=== PATIENT | male | born 1950 | race Caucasian/White ===

== ENCOUNTER 2016-06-12 09:44 | Outpatient (CLI) | payer OTHER | END 2016-06-12 09:54 | LOC: LAB 09:44 | PROVIDERS: ATTEND Family Medicine | DX: Z51.81 Encounter for therapeutic drug level monitoring (principal); Z79.01 Long term (current) use of anticoagulants | CPT/HCPCS: 36415; 85610 ==

== ENCOUNTER 2016-07-17 08:27 | Outpatient (CLI) | payer OTHER | END 2016-07-17 08:33 | disposition home or self-care (01) | LOC: LAB 08:27 | PROVIDERS: ATTEND Family Medicine | DX: Z51.81 Encounter for therapeutic drug level monitoring (principal) | CPT/HCPCS: 36415; 85610 ==

== ENCOUNTER 2016-09-04 07:15 | Outpatient (CLI) | payer OTHER | END 2016-09-04 07:16 | LOC: LAB 07:15 | PROVIDERS: ATTEND Family Medicine | DX: Z51.81 Encounter for therapeutic drug level monitoring (principal); Z79.01 Long term (current) use of anticoagulants | CPT/HCPCS: 36415; 85610 ==

== ENCOUNTER 2016-09-09 06:58 | Outpatient (CLI) | payer OTHER | END 2016-09-09 07:00 | LOC: LAB 06:58 | PROVIDERS: ATTEND Family Medicine | DX: Z51.81 Encounter for therapeutic drug level monitoring (principal); Z79.01 Long term (current) use of anticoagulants | CPT/HCPCS: 36415; 85610 ==

== ENCOUNTER 2016-09-16 07:05 | Outpatient (CLI) | payer OTHER | END 2016-09-16 07:06 | LOC: LAB 07:05 | PROVIDERS: ATTEND Family Medicine | DX: Z51.81 Encounter for therapeutic drug level monitoring (principal); Z79.01 Long term (current) use of anticoagulants | CPT/HCPCS: 36415; 85610 ==

== ENCOUNTER 2016-10-12 07:04 | Outpatient (CLI) | payer OTHER | END 2016-10-12 07:05 | LOC: LAB 07:04 | PROVIDERS: ATTEND Family Medicine | DX: Z51.81 Encounter for therapeutic drug level monitoring (principal) | CPT/HCPCS: 36415; 85610 ==

== ENCOUNTER 2016-11-13 06:52 | Outpatient (CLI) | payer OTHER | END 2016-11-13 06:53 | LOC: LAB 06:52 | PROVIDERS: ATTEND Family Medicine | DX: Z51.81 Encounter for therapeutic drug level monitoring (principal) | CPT/HCPCS: 36415; 85610 ==

== ENCOUNTER 2016-11-18 07:01 | Outpatient (CLI) | payer OTHER | END 2016-11-18 07:02 | LOC: LAB 07:01 | PROVIDERS: ATTEND Family Medicine | DX: Z51.81 Encounter for therapeutic drug level monitoring (principal) | CPT/HCPCS: 36415; 85610 ==

== ENCOUNTER 2017-04-08 08:10 | Outpatient (CLI) | payer OTHER ==
[2017-04-08 08:57] LABS: eGFR (African) > 60; eGFR (Non-African) > 60
== END 2017-04-08 08:11 ==
LOC: LAB 08:10
PROVIDERS: ATTEND Family Medicine
DX: Z51.81 Encounter for therapeutic drug level monitoring (principal); E78.2 Mixed hyperlipidemia; Z12.5 Encounter for screening for malignant neoplasm of prostate
CPT/HCPCS: 36415; 80053; 80061; 85610; G0103

== ENCOUNTER 2017-04-14 07:04 | Outpatient (CLI) | payer OTHER | END 2017-04-14 07:05 | LOC: LAB 07:04 | PROVIDERS: ATTEND Family Medicine | DX: Z51.81 Encounter for therapeutic drug level monitoring (principal) | CPT/HCPCS: 36415; 85610 ==

== ENCOUNTER 2017-05-02 07:00 | Outpatient (CLI) | payer OTHER | END 2017-05-02 07:02 | LOC: LAB 07:00 | PROVIDERS: ATTEND Family Medicine | DX: Z51.81 Encounter for therapeutic drug level monitoring (principal) | CPT/HCPCS: 36415; 85610 ==

== ENCOUNTER 2017-05-09 07:02 | Outpatient (CLI) | payer OTHER | END 2017-05-09 07:03 | LOC: LAB 07:02 | PROVIDERS: ATTEND Family Medicine | DX: Z51.81 Encounter for therapeutic drug level monitoring (principal) | CPT/HCPCS: 36415; 85610 ==

== ENCOUNTER 2017-05-16 07:01 | Outpatient (CLI) | payer OTHER | END 2017-05-16 07:20 | LOC: LAB 07:01 | PROVIDERS: ATTEND Family Medicine | DX: Z51.81 Encounter for therapeutic drug level monitoring (principal) | CPT/HCPCS: 36415; 85610 ==

== ENCOUNTER 2017-05-23 06:58 | Outpatient (CLI) | payer OTHER | END 2017-05-23 07:00 | LOC: LAB 06:58 | PROVIDERS: ATTEND Family Medicine | DX: Z51.81 Encounter for therapeutic drug level monitoring (principal) | CPT/HCPCS: 36415; 85610 ==

== ENCOUNTER 2017-06-11 09:10 | Outpatient (CLI) | payer OTHER | END 2017-06-11 09:11 | LOC: LAB 09:10 | PROVIDERS: ATTEND Family Medicine | DX: Z51.81 Encounter for therapeutic drug level monitoring (principal) | CPT/HCPCS: 36415; 85610 ==

== ENCOUNTER 2017-08-06 08:40 | Outpatient (CLI) | payer BC, OTHER | END 2017-08-06 08:42 | LOC: LAB 08:40 | PROVIDERS: ATTEND Family Medicine | DX: Z51.81 Encounter for therapeutic drug level monitoring (principal) | CPT/HCPCS: 36415; 85610 ==

== ENCOUNTER 2017-08-13 08:02 | Outpatient (CLI) | payer BC | END 2017-08-13 08:10 | LOC: LAB 08:02 | PROVIDERS: ATTEND Family Medicine | DX: Z51.81 Encounter for therapeutic drug level monitoring (principal) | CPT/HCPCS: 36415; 85610 ==

== ENCOUNTER 2017-10-15 09:11 | Outpatient (CLI) | payer OTHER | END 2017-10-15 09:12 | LOC: LAB 09:11 | PROVIDERS: ATTEND Family Medicine | DX: Z51.81 Encounter for therapeutic drug level monitoring (principal) | CPT/HCPCS: 36415; 85610 ==

== ENCOUNTER 2017-11-12 07:09 | Outpatient (CLI) | payer OTHER | END 2017-11-12 07:10 | LOC: LAB 07:09 | PROVIDERS: ATTEND Family Medicine | DX: Z51.81 Encounter for therapeutic drug level monitoring (principal) | CPT/HCPCS: 36415; 85610 ==

== ENCOUNTER 2017-12-10 07:10 | Outpatient (CLI) | payer OTHER | END 2017-12-10 07:12 | LOC: LAB 07:10 | PROVIDERS: ATTEND Family Medicine | DX: Z51.81 Encounter for therapeutic drug level monitoring (principal) | CPT/HCPCS: 36415; 85610 ==

== ENCOUNTER 2018-01-07 07:25 | Outpatient (CLI) | payer OTHER | END 2018-01-07 07:26 | LOC: LAB 07:25 | PROVIDERS: ATTEND Family Medicine | DX: Z51.81 Encounter for therapeutic drug level monitoring (principal) | CPT/HCPCS: 85610 ==

== ENCOUNTER 2018-02-11 08:53 | Outpatient (CLI) | payer OTHER | END 2018-02-11 08:55 | LOC: LAB 08:53 | PROVIDERS: ATTEND Family Medicine | DX: Z51.81 Encounter for therapeutic drug level monitoring (principal) | CPT/HCPCS: 85610 ==

== ENCOUNTER 2018-03-18 07:15 | Outpatient (CLI) | payer OTHER | END 2018-03-18 07:16 | LOC: LAB 07:15 | PROVIDERS: ATTEND Family Medicine | DX: Z51.81 Encounter for therapeutic drug level monitoring (principal) | CPT/HCPCS: 36415; 85610 ==

== ENCOUNTER 2018-04-08 08:02 | Outpatient (CLI) | payer OTHER | END 2018-04-08 08:03 | LOC: LAB 08:02 | PROVIDERS: ATTEND Family Medicine | DX: Z51.81 Encounter for therapeutic drug level monitoring (principal) | CPT/HCPCS: 36415; 85610 ==

== ENCOUNTER 2018-08-12 08:36 | Outpatient (CLI) | payer OTHER | END 2018-08-12 09:00 | LOC: LAB 08:36 | PROVIDERS: ATTEND Family Medicine | DX: Z51.81 Encounter for therapeutic drug level monitoring (principal) | CPT/HCPCS: 85610 ==

== ENCOUNTER 2018-09-16 07:03 | Outpatient (CLI) | payer OTHER | END 2018-09-16 07:05 | LOC: LAB 07:03 | PROVIDERS: ATTEND Family Medicine | DX: Z51.81 Encounter for therapeutic drug level monitoring (principal) | CPT/HCPCS: 85610 ==